=== PATIENT | male | born 1995 | race Caucasian/White ===

== ENCOUNTER 2018-11-13 23:06 | Emergency (ER) | payer SELFPAY ==
--- NOTE | 2018-11-13 23:52 | EDM.PDOC ---
ED HPI GENERAL MEDICAL PROBLEM - General Chief Complaint: Syncope Stated Complaint: POSSIBLE SEIZURE Time Seen by Provider: 11/13/18 23:48 - History of Present Illness INITIAL COMMENTS - FREE TEXT/NARRATIVE: HISTORY AND PHYSICAL: History of present illness: Patient 22-year-old white male presents status post coughing episode with subsequent syncope there is no associated trauma no other complaints or concerns and he has no complaints upon arrival there was no chest pain palpitations or other complaints he denies similar episode in the past Review of systems: As per history of present illness and below otherwise all systems reviewed and negative. Past medical history: As per history of present illness and as reviewed below otherwise noncontributory. Surgical history: As per history of present illness and as reviewed below otherwise noncontributory. Social history: No reported history of drug or alcohol abuse. Family history: As per history of present illness and as reviewed below otherwise noncontributory. Physical exam: HEENT: Atraumatic, normocephalic, pupils reactive, negative for conjunctival pallor or scleral icterus, mucous membranes moist, throat clear, neck supple, nontender, trachea midline. Lungs: Clear to auscultation, breath sounds equal bilaterally, chest nontender. Heart: S1S2, regular, negative for clicks, rubs, or JVD. Abdomen: Soft, nondistended, nontender. Negative for masses or hepatosplenomegaly. Negative for costovertebral tenderness. Pelvis: Stable nontender. Genitourinary: Deferred. Rectal: Deferred. Extremities: Atraumatic, negative for cords or calf pain. Neurovascular unremarkable. Neuro: Awake, alert, oriented. Cranial nerves II through XII unremarkable. Cerebellum unremarkable. Motor and sensory unremarkable throughout. Exam nonfocal. Diagnostics: CBC CMP troponin PT/INR chest x-ray EKG Therapeutics: IV site monitor Impression: #1 syncope probable vasovagal event Definitive disposition and diagnosis as appropriate pending reevaluation and review of above. face Pain Score (Numeric/FACES): 10 - Related Data Allergies Allergy/AdvReac Type Severity Reaction Status Date / Time No Known Allergies Allergy Verified 11/13/18 23:15 Home Meds: Home Meds . [No Known Home Meds] 11/13/18 [History] Social & Family History - Family History Family Medical History: Noncontributory - Tobacco Use Smoking Status *Q: Current Every Day Smoker Years of Tobacco use: 3 Packs/Tins Daily: 1 - Recreational Drug Use Recreational Drug Use: No ED ROS GENERAL - Review of Systems Review Of Systems: ROS reveals no pertinent complaints other than HPI. ED EXAM, GENERAL - Physical Exam Exam: See Below (See dictation) Course - Vital Signs Last Recorded V/S: Last Vital Signs Temp 36.6 C 11/13/18 23:06 Pulse 90 11/13/18 23:06 Resp 18 11/13/18 23:06 BP 151/83 H 11/13/18 23:06 Pulse Ox 95 11/13/18 23:06 - Orders/Labs/Meds Orders: Active Orders 24 hr Category Date Time Status Cardiac Monitoring [RC] . DIRECTED Care 11/13/18 23:24 Active EKG Documentation Completion [RC] STAT Care 11/13/18 23:24 Active Chest 1V Frontal [CR] Stat Exams 11/13/18 23:25 Ordered BASIC METABOLIC PANEL,BMP [CHEM] Stat Lab 11/13/18 23:39 Received CBC WITH AUTO DIFF [HEME] Stat Lab 11/13/18 23:39 Received INR,PT,PROTHROMBIN TIME [COAG] Stat Lab 11/13/18 23:39 Received TROPONIN I [CHEM] Stat Lab 11/13/18 23:39 Received UA W/O MICROSCOPIC [URIN] Stat Lab 11/13/18 23:24 Ordered Labs: Laboratory Tests 11/13/18 Range/Units 23:16 POC Glucose 99 (60-110) mg/dL Departure - Departure Time of Disposition: 23:51 Disposition: Home, Self-Care 01 Condition: Good Clinical Impression: Syncope - Discharge Information Referrals: PCP,None [Primary Care Provider] - Additional Instructions: The following information is given to patients seen in the emergency department who are being discharged to home. This information is to outline your options for follow-up care. We provide all patients seen in our emergency department with a follow-up referral. The need for follow-up, as well as the timing and circumstances, are variable depending upon the specifics of your emergency department visit. If you don't have a primary care physician on staff, we will provide you with a referral. We always advise you to contact your personal physician following an emergency department visit to inform them of the circumstance of the visit and for follow-up with them and/or the need for any referrals to a consulting specialist. The emergency department will also refer you to a specialist when appropriate. This referral assures that you have the opportunity for followup care with a specialist. All of these measure are taken in an effort to provide you with optimal care, which includes your followup. Under all circumstances we always encourage you to contact your private physician who remains a resource for coordinating your care. When calling for followup care, please make the office aware that this follow-up is from your recent emergency room visit. If for any reason you are refused follow-up, please contact the [facility] emergency department at and asked to speak to the emergency department charge nurse. [facility] [address] [place] [id number] Follow-up primary medical doctor and/or clinic above return as needed as discussed - My Orders Last 24 Hours: My Active Orders 11/13/18 23:24 Cardiac Monitoring [RC] . DIRECTED EKG Documentation Completion [RC] STAT UA W/O MICROSCOPIC [URIN] Stat 11/13/18 23:25 Chest 1V Frontal [CR] Stat 11/13/18 23:39 BASIC METABOLIC PANEL,BMP [CHEM] Stat CBC WITH AUTO DIFF [HEME] Stat INR,PT,PROTHROMBIN TIME [COAG] Stat TROPONIN I [CHEM] Stat - Assessment/Plan Last 24 Hours: My Active Orders 11/13/18 23:24 Cardiac Monitoring [RC] . DIRECTED EKG Documentation Completion [RC] STAT UA W/O MICROSCOPIC [URIN] Stat 11/13/18 23:25 Chest 1V Frontal [CR] Stat 11/13/18 23:39 BASIC METABOLIC PANEL,BMP [CHEM] Stat CBC WITH AUTO DIFF [HEME] Stat INR,PT,PROTHROMBIN TIME [COAG] Stat TROPONIN I [CHEM] Stat
--- NOTE | 2018-11-14 00:04 | CR ---
INDICATION: Chest pain TECHNIQUE: Chest radiograph 1 view COMPARISON: None FINDINGS: Moderate to severe degradation of image quality noted due to body habitus. Mediastinum: The mediastinum is normal in appearance. The heart silhouette is normal in size and morphology. Lung: Mild bibasilar subsegmental atelectasis is noted. No sign of pleural effusion seen. No pneumothorax is identified. Musculoskeletal: Unremarkable for age. IMPRESSION: 1. Mild bibasilar subsegmental atelectasis is noted. Dictated by: Erasto Angulo MD @ 11/14/2018 00:01:06 (Electronically Signed)
[2018-11-14 00:15] LABS: CHLORIDE,CL 107 mmol/L (98-107); SODIUM,NA 142 mmol/L (136-148)
== END 2018-11-14 00:55 | disposition home or self-care (01) ==
LOC: MW.ED 23:06
DX: R55 Syncope and collapse (principal); F17.210 Nicotine dependence, cigarettes, uncomplicated
CPT/HCPCS: 36415; 71045; 71045-26; 80048; 81003; 82962; 84484; 85025; 85610; 93005; 99283; 99284-25